=== PATIENT | female | born 1955 | race Caucasian/White ===

== ENCOUNTER → 2020-08-24 13:27 | Outpatient (BNVA) | payer MEDICARE, OTHER, SELFPAY | PROVIDERS: PCP Internal Medicine; Visit Provider Surgery | DX: Z76.89 Persons encountering health services in other specified circumstances (principal) ==

== ENCOUNTER → 2020-08-29 10:44 | Outpatient (BNVA) | payer MEDICARE, OTHER, SELFPAY | PROVIDERS: PCP Internal Medicine; Visit Provider Surgery | DX: Z76.89 Persons encountering health services in other specified circumstances (principal) ==

== ENCOUNTER → 2020-09-06 09:29 | Outpatient (BNVA) | payer MEDICARE, OTHER, SELFPAY | PROVIDERS: PCP Internal Medicine; Visit Provider Surgery | DX: D05.11 Intraductal carcinoma in situ of right breast (principal); E78.5 Hyperlipidemia, unspecified; I10 Essential (primary) hypertension; Z79.52 Long term (current) use of systemic steroids | CPT/HCPCS: 99212 ==

== ENCOUNTER → 2020-10-06 09:48 | Outpatient (BNVA) | payer MEDICARE, OTHER, SELFPAY | PROVIDERS: PCP Internal Medicine; Visit Provider Surgery | DX: Z48.3 Aftercare following surgery for neoplasm (principal); D05.11 Intraductal carcinoma in situ of right breast | CPT/HCPCS: 99212 ==

== ENCOUNTER → 2021-01-05 09:48 | Outpatient (BNVA) | payer MEDICARE, OTHER, SELFPAY | PROVIDERS: PCP Internal Medicine; Visit Provider Surgery | DX: D05.11 Intraductal carcinoma in situ of right breast (principal) | CPT/HCPCS: 99212 ==

== ENCOUNTER 2021-01-31 11:20 | Outpatient (REF) | payer MEDICARE, OTHER, SELFPAY ==
[2021-01-31 13:56] LABS: MANUAL DIFF FLAG NO
[2021-01-31 14:00] LABS: Basophils Percent Auto 0.2 % (0-2); Eosinophils Absolute Auto 0.1 X10*3/uL (0.0-0.4); Eosinophils Percent Auto 3.1 % (0-4); Hematocrit 38.8 % (37-47); Hemoglobin 12.8 g/dl (12.0-16.0); Imm Gran Abs Auto 0.02 X10*3/uL (0.00-0.03); Imm Gran Pct Auto 0.5 % (0.0-0.4); Lymphocytes Absolute Auto 1.1 X10*3/uL (1.2-4.9); Lymphocytes Percent Auto 26.1 % (20-40); Mean Corpuscular Hemoglobin 30.6 pg (27.0-33.0); Mean Corpuscular Volume 92.8 fL (80-98); Mean Platelet Volume 10.1 fL (9.4-12.3); Monocytes Absolute Auto 0.4 X10*3/uL (0.1-1.2); Monocytes Percent Auto 10.6 % (2-11); Neutrophils Absolute Auto 2.5 X10*3/uL (2.0-8.3); Neutrophils Percent Auto 59.5 % (45-73); Platelet Count 235 X10*3/uL (160-400); Red Blood Count 4.18 X10*6/uL (4.20-5.50); Red Cell Distribution Width 12.9 % (11.0-16.0); White Blood Count 4.1 X10*3/uL (4.8-10.8)
[2021-01-31 14:29] LABS: Alanine Aminotransferase 23 U/L (0-31); Albumin Level 4.4 g/dL (3.5-5.0); Alkaline Phosphatase 80 U/L (39-117); Anion Gap 13 (12-20); Aspartate Amino Transferase 15 U/L (5-31); Bilirubin Total 0.3 mg/dL (0.0-1.0); Blood Urea Nitrogen 19 mg/dL (9-16); Calcium 9.6 mg/dL (8.4-10.2); Carbon Dioxide 28 mmol/L (22-29); Chloride 105 mmol/L (96-108); Estimated Glomerular Filt Rate > 60; Glucose Random 95 mg/dL (60-115); Potassium 4.5 mmol/L (3.3-5.1); Sodium 141 mmol/L (135-145); Total Protein 6.9 g/dL (6.5-8.0)
[2021-01-31 14:52] LABS: Vitamin D 25-OH Total 36.4 ng/mL (>30)
== END 2021-01-31 11:21 | disposition home or self-care (01) ==
LOC: HO.10HDL 11:20
PROVIDERS: Visit Provider Internal Medicine
DX: I10 Essential (primary) hypertension (principal); E78.00 Pure hypercholesterolemia, unspecified; E55.9 Vitamin D deficiency, unspecified
CPT/HCPCS: 36415; 80053; 82306; 85025

== ENCOUNTER → 2021-04-03 10:07 | Outpatient (BNVA) | payer MEDICARE, OTHER, SELFPAY | PROVIDERS: PCP Internal Medicine; Referring Provider Internal Medicine; Visit Provider Surgery | DX: D05.11 Intraductal carcinoma in situ of right breast (principal) | CPT/HCPCS: 99212 ==

== ENCOUNTER 2021-05-21 07:23 | Outpatient (REF) | payer MEDICARE, OTHER, SELFPAY ==
[2021-05-21 08:19] LABS: MANUAL DIFF FLAG NO
[2021-05-21 08:22] LABS: Basophils Percent Auto 0.3 % (0-2); Eosinophils Absolute Auto 0.1 X10*3/uL (0.0-0.4); Eosinophils Percent Auto 2.9 % (0-4); Hematocrit 37.4 % (37-47); Hemoglobin 12.3 g/dl (12.0-16.0); Imm Gran Abs Auto 0.02 X10*3/uL (0.00-0.03); Imm Gran Pct Auto 0.5 % (0.0-0.4); Lymphocytes Absolute Auto 1.1 X10*3/uL (1.2-4.9); Lymphocytes Percent Auto 29.8 % (20-40); Mean Corpuscular HGB Conc 32.9 g/dl (31.0-35.0); Mean Corpuscular Hemoglobin 30.7 pg (27.0-33.0); Mean Corpuscular Volume 93.3 fL (80-98); Mean Platelet Volume 9.5 fL (9.4-12.3); Monocytes Absolute Auto 0.4 X10*3/uL (0.1-1.2); Monocytes Percent Auto 11.5 % (2-11); Neutrophils Absolute Auto 2.1 X10*3/uL (2.0-8.3); Platelet Count 208 X10*3/uL (160-400); Red Blood Count 4.01 X10*6/uL (4.20-5.50); Red Cell Distribution Width 13.2 % (11.0-16.0); White Blood Count 3.8 X10*3/uL (4.8-10.8)
[2021-05-21 08:56] LABS: Alanine Aminotransferase 18 U/L (0-31); Albumin Level 4.4 g/dL (3.5-5.0); Alkaline Phosphatase 83 U/L (39-117); Anion Gap 12 (12-20); Aspartate Amino Transferase 17 U/L (5-31); Bilirubin Total 0.3 mg/dL (0.0-1.0); Blood Urea Nitrogen 18 mg/dL (9-16); Calcium 10.1 mg/dL (8.4-10.2); Carbon Dioxide 29 mmol/L (22-29); Chloride 104 mmol/L (96-108); Cholesterol 179 mg/dL; Estimated Glomerular Filt Rate > 60; Glucose Fasting 119 mg/dL (60-99); HDL Cholesterol 48 mg/dL; LDL Cholesterol Calculated 114 mg/dl; Potassium 4.3 mmol/L (3.3-5.1); Sodium 141 mmol/L (135-145); Triglycerides 87 mg/dL
== END 2021-05-21 07:24 | disposition home or self-care (01) ==
LOC: HO.LAB 07:23
PROVIDERS: PCP Internal Medicine; Visit Provider Internal Medicine
DX: I10 Essential (primary) hypertension (principal); E78.00 Pure hypercholesterolemia, unspecified
CPT/HCPCS: 36415; 80053; 80061; 85025

== ENCOUNTER 2021-05-25 12:17 | Outpatient (REF) | payer MEDICARE, OTHER, SELFPAY ==
--- NOTE | ~2021-05-25 | MM_ITS ---
EXAMINATION: MM BREAST DIAGNOSTIC DIGITAL TOMOSYNTHESIS, BILATERAL CLINICAL INFORMATION: Status post lumpectomy in 2020 COMPARISON: Mammography: 08/21/2020 and studies dating back to 01/08/2010 TECHNIQUE: Digital breast tomosynthesis is performed in both the craniocaudal and mediolateral oblique views along with computer-aided detection (CAD). Synthesized 2D images are generated from the tomosynthesis. Additional spot magnification views of the right breast in craniocaudal and 90 degree mediolateral views performed. FINDINGS: There are scattered areas of fibroglandular density (ACR BI-RADS breast composition Category b). There is some postsurgical change seen about the right breast. No new abnormal dominant masses or suspicious grouping of microcalcifications identified. There is a clip with some scarring around it seen within the deep inferior aspect of the left breast. No new suspicious mass or grouping of calcifications identified. Results are provided to the patient at time of visit by the technologist. MM/MM tomosynthesis diagnostic BI IMPRESSION: No specific mammographic evidence to suggest malignancy. Status post right breast surgical changes. ASSESSMENT: BI-RADS 2: Benign RECOMMENDATION: Diagnostic mammography at time of next annual exam, due in 12 months. This patient's information was entered into a reminder system with a target due date for their next mammogram.
== END 2021-05-25 12:18 | disposition home or self-care (01) ==
LOC: HO.MAMMO 12:17
PROVIDERS: PCP Internal Medicine; Visit Provider Surgery
DX: D05.11 Intraductal carcinoma in situ of right breast (principal); Z98.890 Other specified postprocedural states
CPT/HCPCS: 77062; 77066

== ENCOUNTER 2021-08-24 07:37 | Outpatient (REF) | payer MEDICARE, OTHER, SELFPAY ==
[2021-08-24 10:27] LABS: Estimated Average Glucose 126 mg/dL; Hemoglobin A1C 131.5144 umol/L
[2021-08-24 10:31] LABS: Alanine Aminotransferase 18 U/L (0-31); Albumin Level 4.4 g/dL (3.5-5.0); Alkaline Phosphatase 80 U/L (39-117); Anion Gap 14 (12-20); Aspartate Amino Transferase 15 U/L (5-31); Bilirubin Total 0.4 mg/dL (0.0-1.0); Blood Urea Nitrogen 14 mg/dL (9-16); Carbon Dioxide 27 mmol/L (22-29); Chloride 103 mmol/L (96-108); Estimated Glomerular Filt Rate > 60; Glucose Fasting 128 mg/dL (60-99); Potassium 4.1 mmol/L (3.3-5.1); Sodium 140 mmol/L (135-145); Total Protein 6.9 g/dL (6.5-8.0)
== END 2021-08-24 07:38 | disposition home or self-care (01) ==
LOC: HO.10HDL 07:37
PROVIDERS: Visit Provider Internal Medicine
DX: I10 Essential (primary) hypertension (principal); R73.03 Prediabetes
CPT/HCPCS: 36415; 80053; 83036

== ENCOUNTER → 2021-10-02 08:47 | Outpatient (BNVA) | payer MEDICARE, OTHER, SELFPAY | PROVIDERS: PCP Internal Medicine; Referring Provider Internal Medicine; Visit Provider Surgery | DX: D05.11 Intraductal carcinoma in situ of right breast (principal) | CPT/HCPCS: 99212 ==

== ENCOUNTER 2022-05-28 10:54 | Outpatient (REF) | payer MEDICARE, OTHER, SELFPAY ==
--- NOTE | ~2022-05-28 | MM_ITS ---
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 Due for yearly. COMPARISON: Mammography: 05/25/2021, 08/21/2020, 08/04/2020, 07/26/2020, 07/21/2020, 07/16/2019 TECHNIQUE: Digital breast tomosynthesis is performed in both the craniocaudal and mediolateral oblique views along with computer-aided detection (CAD). Synthesized 2D images are generated from the tomosynthesis. Additional magnification right CC and magnification right ML views are obtained. FINDINGS: There are scattered areas of fibroglandular density (ACR BI-RADS breast composition Category b). Minor right postsurgical changes are stable. There is no interval mass or architectural abnormality or abnormal calcifications in either breast. Biopsy clip marker again seen posterior central 6:00 left breast. The axilla are unremarkable. No significant changes. Results are provided to the patient at time of visit by the technologist. MM/MM tomosynthesis diagnostic BI IMPRESSION: -No mammographic evidence of malignancy. -Minor post therapy changes right breast. ASSESSMENT: BI-RADS 2: Benign RECOMMENDATION: Annual bilateral mammography. This patient's information was entered into a reminder system with a target due date for their next mammogram.
== END 2022-05-28 10:55 | disposition home or self-care (01) ==
LOC: HO.MAMMO 10:54
PROVIDERS: Visit Provider Surgery
DX: D05.11 Intraductal carcinoma in situ of right breast (principal)
CPT/HCPCS: 77062; 77066; 99212

== ENCOUNTER 2022-06-04 07:31 | Outpatient (REF) | payer MEDICARE, OTHER, SELFPAY ==
[2022-06-04 10:44] LABS: MANUAL DIFF FLAG NO
[2022-06-04 10:52] LABS: Eosinophils Absolute Auto 0.1 X10*3/uL (0.0-0.4); Hematocrit 33.7 % (37.0-47.0); Hemoglobin 11.1 g/dl (12.0-16.0); Imm Gran Abs Auto 0.03 X10*3/uL (0.00-0.03); Imm Gran Pct Auto 0.9 % (0.0-0.4); Lymphocytes Percent Auto 30.8 % (20-40); Mean Corpuscular HGB Conc 32.9 g/dl (31.0-35.0); Mean Corpuscular Hemoglobin 30.4 pg (27.0-33.0); Mean Corpuscular Volume 92.3 fL (80.0-98.0); Mean Platelet Volume 10.2 fL (9.4-12.3); Monocytes Absolute Auto 0.3 X10*3/uL (0.1-1.2); Neutrophils Absolute Auto 1.8 x10*3/uL (2.0-8.3); Neutrophils Percent Auto 55.3 % (45-73); Platelet Count 187 X10*3/uL (160-400); Red Blood Count 3.65 X10*6/uL (4.20-5.50); Red Cell Distribution Width 14.3 % (11.0-16.0); White Blood Count 3.2 X10*3/uL (4.8-10.8)
[2022-06-04 11:02] LABS: Alanine Aminotransferase 21 U/L (0-31); Albumin Level 4.4 g/dL (3.5-5.0); Alkaline Phosphatase 78 U/L (39-117); Anion Gap 12 (12-20); Aspartate Amino Transferase 15 U/L (5-31); Bilirubin Total 0.3 mg/dL (0.0-1.0); Blood Urea Nitrogen 20 mg/dL (9-16); Calcium 9.9 mg/dL (8.4-10.2); Carbon Dioxide 27 mmol/L (22-29); Chloride 104 mmol/L (96-108); Cholesterol 185 mg/dL; Estimated Glomerular Filt Rate > 60; Glucose Fasting 119 mg/dL (60-99); HDL Cholesterol 49 mg/dL; LDL Cholesterol Calculated 116 mg/dl; Potassium 4.1 mmol/L (3.3-5.1); Sodium 139 mmol/L (135-145); Total Protein 6.9 g/dL (6.5-8.0); Triglycerides 101 mg/dL
[2022-06-04 11:22] LABS: Vitamin D 25-OH Total 44.2 ng/mL (>30)
== END 2022-06-04 07:32 | disposition home or self-care (01) ==
LOC: HO.10HDL 07:31
PROVIDERS: Visit Provider Internal Medicine
DX: I10 Essential (primary) hypertension (principal); E78.00 Pure hypercholesterolemia, unspecified; E55.9 Vitamin D deficiency, unspecified
CPT/HCPCS: 36415; 80053; 80061; 82306; 85025

== ENCOUNTER 2022-07-26 07:32 | Outpatient (REF) | payer MEDICARE, OTHER, SELFPAY ==
[2022-07-26 11:44] LABS: Estimated Average Glucose 128 mg/dL; Hemoglobin A1c % 6.1 %
[2022-07-26 11:47] LABS: Anion Gap 15 (12-20); Blood Urea Nitrogen 18 mg/dL (9-16); Calcium 9.8 mg/dL (8.4-10.2); Carbon Dioxide 26 mmol/L (22-29); Chloride 104 mmol/L (96-108); Estimated Glomerular Filt Rate > 60; Glucose Fasting 109 mg/dL (60-99); Iron 101 mcg/dL (30-160); Percent Iron Saturation 26 % (15-50); Sodium 141 mmol/L (135-145); Total Iron Binding Capacity 391 mcg/dL (228-428); Unsaturated Iron Binding 290 ug/dL
== END 2022-07-26 07:33 | disposition home or self-care (01) ==
LOC: HO.10HDL 07:32
PROVIDERS: Visit Provider Internal Medicine
DX: R73.03 Prediabetes (principal); I10 Essential (primary) hypertension; R60.0 Localized edema; D64.9 Anemia, unspecified
CPT/HCPCS: 36415; 80048; 83036; 83540

== ENCOUNTER → 2022-11-28 08:51 | Outpatient (BNVA) | payer MEDICARE, OTHER, SELFPAY | PROVIDERS: PCP Internal Medicine; Visit Provider Surgery | DX: D05.11 Intraductal carcinoma in situ of right breast (principal); Z79.811 Long term (current) use of aromatase inhibitors; Z92.3 Personal history of irradiation | CPT/HCPCS: 99212 ==

== ENCOUNTER 2023-03-24 07:48 | Outpatient (REF) | payer MEDICARE, OTHER, SELFPAY ==
[2023-03-24 11:13] LABS: Basophils Percent Auto 0.4 % (0-2); Eosinophils Absolute Auto 0.1 X10*3/uL (0.0-0.4); Eosinophils Percent Auto 3.1 % (0-4); Hematocrit 32.1 % (37.0-47.0); Hemoglobin 10.2 g/dl (12.0-16.0); Imm Gran Abs Auto 0.04 X10*3/uL (0.00-0.03); Imm Gran Pct Auto 1.5 % (0.0-0.4); Lymphocytes Absolute Auto 0.8 X10*3/uL (1.2-4.9); Lymphocytes Percent Auto 28.7 % (20-40); MANUAL DIFF FLAG SCAN; Mean Corpuscular HGB Conc 31.8 g/dl (31.0-35.0); Mean Corpuscular Hemoglobin 28.9 pg (27.0-33.0); Mean Corpuscular Volume 90.9 fL (80.0-98.0); Mean Platelet Volume 10.8 fL (9.4-12.3); Monocytes Absolute Auto 0.3 X10*3/uL (0.1-1.2); Neutrophils Absolute Auto 1.5 x10*3/uL (2.0-8.3); Neutrophils Percent Auto 56.3 % (45-73); PLT CLUMP 1; Red Blood Count 3.53 X10*6/uL (4.20-5.50); Red Cell Distribution Width 15.7 % (11.0-16.0); SCAN SMEAR FLAG 1
[2023-03-24 11:14] LABS: White Blood Count 2.6 X10*3/uL (4.8-10.8)
[2023-03-24 11:34] LABS: Platelet Count 151 X10*3/uL (160-400); SLIDE REVIEW VERIFIED
[2023-03-24 12:43] LABS: Anion Gap 13 (12-20); Blood Urea Nitrogen 17 mg/dL (9-16); Calcium 9.9 mg/dL (8.4-10.2); Carbon Dioxide 27 mmol/L (22-29); Chloride 105 mmol/L (96-108); Estimated Glomerular Filt Rate > 60; Glucose Random 122 mg/dL (60-115); Sodium 141 mmol/L (135-145)
[2023-03-24 12:45] LABS: Estimated Average Glucose 140 mg/dL; Hemoglobin A1c % 6.5 %
== END 2023-03-24 07:49 | disposition home or self-care (01) ==
LOC: HO.10HDL 07:48
PROVIDERS: Visit Provider Internal Medicine
DX: I10 Essential (primary) hypertension (principal); R73.03 Prediabetes
CPT/HCPCS: 36415; 80048; 83036; 85025

== ENCOUNTER 2023-06-12 08:13 | Outpatient (REF) | payer MEDICARE, OTHER, SELFPAY ==
--- NOTE | ~2023-06-12 | MM_ITS ---
EXAMINATION: MM DIAGNOSTIC DIGITAL BREAST TOMOSYNTHESIS, BILATERAL CLINICAL INFORMATION: History of treated right breast DCIS diagnosed in 2020. COMPARISON: Mammography: This study is compared with prior mammograms dating back to 2018. TECHNIQUE: Digital breast tomosynthesis is performed in both the craniocaudal and mediolateral oblique views along with computer-aided detection (CAD). Synthesized 2D images are generated from the tomosynthesis. CC and lateral magnification imaging of the surgical bed of the right breast. FINDINGS: There are scattered areas of fibroglandular density (ACR BI-RADS breast composition Category b). There are no significant masses, abnormal calcifications, or other abnormalities. There are postsurgical changes in the posterior nipple line. There are a few, bilateral benign calcifications. There is a tissue marker in the left breast from prior benign percutaneous biopsy. MM/MM tomosynthesis diagnostic BI IMPRESSION: No mammographic evidence of malignancy. Postsurgical changes right breast. ASSESSMENT: BI-RADS BI-RADS 2 - Benign Findings RECOMMENDATION: 1 year F/U This patient's information was entered into a reminder system with a target due date for their next mammogram.
== END 2023-06-12 08:14 | disposition home or self-care (01) ==
LOC: HO.MAMMO 08:13
PROVIDERS: PCP Internal Medicine; Visit Provider Surgery
DX: Z85.3 Personal history of malignant neoplasm of breast (principal)
CPT/HCPCS: 77062; 77066

== ENCOUNTER → 2023-06-12 08:30 | Outpatient (BNV) | payer MEDICARE, OTHER, SELFPAY | PROVIDERS: PCP Internal Medicine; Visit Provider Radiology Diagnostic Radiology | DX: D05.11 Intraductal carcinoma in situ of right breast (principal) | CPT/HCPCS: 77066 ==

== ENCOUNTER 2023-06-19 08:49 | Outpatient (AMB) | payer MEDICARE, OTHER, SELFPAY ==
--- NOTE | 2023-06-19 08:51 | A.OFFVIS_ITS ---
Intake Vital Signs 06/19/23 09:05 Height 59 ft Weight 266 lb 12.149 oz BMI 0.4 BP 130/82 Blood Pressure Location Lt brachial Position Sitting Intake Visit Reasons: 6 month breast exam Intake Note: Patient is seen in office for 6 month follow up visit, breast exam. Patient c/o: denies any concerns at the time of visit Paste Up Copy Camera Operator Required: No Casino Floor Runner: Casino Floor Runner Present Accompanied by: Self / Same As Patient Allergies chlorhexidine Allergy (Intermediate, Verified 06/19/23 08:52) Rash HPI HPI Comments History of Present Illness Details Angelica Slade is a 67-year-old female patient who returns to the office for follow-up breast examination.? 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 Subsequent re-evaluation of pathology at [facility] revealed an area of micro invasion.? Postoperatively she developed redness in the skin related to the skin prep (chlorhexidine) which gradually resolved.? She subsequently underwent [place] therapy [place]10[place]23/2020[place] [facility] [place] and tolerated this well with no side effects.? She is being followed from medical oncology by Dr. Burk/Carleen and was started on anastrozole (started 12/2020). She tolerates this with mild side effects (hot flashes).? She feels well and denies any ongoing breast symptoms on either side.? She denies any new palpable lumps, skin changes, nipple discharge, or enlarged lymph nodes. Diagnostic mammography performed on 06/12/2023 revealed no mammographic specific evidence of malignancy with prior treatment of the right breast (BI-RADS 2: Benign). Yearly mammogram is recommended in May 2024. She should follow up in 6 months. [facility] Medical History Hyperlipidemia Hypertension Surgical History History of lumpectomy of right breast (~08/21/20) S/P lumpectomy, right breast Family History Father History of prostate cancer Social History Alcohol intake: current Alcohol intake frequency: holidays/special occasions only Review of Systems Const All systems reviewed & are unremarkable except as noted in HPI and below Denies nipple discharge Skin/Breast Denies breast skin changes, Denies breast pain, Denies breast mass, Denies change in breast shape and Denies nipple discharge Physical Exam Const General: cooperative, healthy appearing, comfortable, no acute distress and well developed Chest Other: Left breast: No skin change, no nipple retraction, no nipple discharge, no p alpable mass, no enlarged lymph nodes. 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 She is now on anastrozole and is also tolerating this well. Th ere is no evidence of recurrence disease. Her most recent mammogram dated 06/12/2022 revealed no suspicious findings (BI-RADS 2) and yearly mammography recommended. Examination today reveals no evidence of recurrence disease and well-healed incision in the right breast. I recommended follow-up evaluation in 6 months sooner p.r.n.. 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
[2023-06-19 09:05] VITALS: BP 130/82
== END 2023-06-19 09:06 | disposition home or self-care (01) ==
PROVIDERS: PCP Internal Medicine; Visit Provider Surgery
DX: D05.11 Intraductal carcinoma in situ of right breast (principal)
CPT/HCPCS: 99213

== ENCOUNTER → 2023-06-19 08:49 | Outpatient (BNVA) | payer MEDICARE, OTHER, SELFPAY | PROVIDERS: PCP Internal Medicine; Visit Provider Surgery | DX: D05.11 Intraductal carcinoma in situ of right breast (principal); Z92.3 Personal history of irradiation; Z79.811 Long term (current) use of aromatase inhibitors | CPT/HCPCS: 99212 ==

== ENCOUNTER 2023-06-26 07:31 | Outpatient (REF) | payer MEDICARE, OTHER, SELFPAY ==
[2023-06-26 11:20] LABS: MANUAL DIFF FLAG NO
[2023-06-26 11:49] LABS: Basophils Percent Auto 0.4 % (0-2); Eosinophils Absolute Auto 0.1 X10*3/uL (0.0-0.4); Eosinophils Percent Auto 4.5 % (0-4); Hemoglobin 10.1 g/dl (12.0-16.0); Imm Gran Abs Auto 0.04 X10*3/uL (0.00-0.03); Imm Gran Pct Auto 1.5 % (0.0-0.4); Lymphocytes Absolute Auto 0.8 X10*3/uL (1.2-4.9); Lymphocytes Percent Auto 30.5 % (20-40); Mean Corpuscular HGB Conc 31.6 g/dl (31.0-35.0); Mean Corpuscular Hemoglobin 29.4 pg (27.0-33.0); Mean Platelet Volume 10.8 fL (9.4-12.3); Monocytes Absolute Auto 0.3 X10*3/uL (0.1-1.2); Monocytes Percent Auto 11.7 % (2-11); Neutrophils Absolute Auto 1.4 x10*3/uL (2.0-8.3); Neutrophils Percent Auto 51.4 % (45-73); Platelet Count 166 X10*3/uL (160-400); Red Blood Count 3.44 X10*6/uL (4.20-5.50); Red Cell Distribution Width 16.2 % (11.0-16.0); White Blood Count 2.7 X10*3/uL (4.8-10.8)
[2023-06-26 12:02] LABS: Alanine Aminotransferase 23 U/L (0-31); Albumin Level 4.2 g/dL (3.5-5.0); Alkaline Phosphatase 76 U/L (39-117); Anion Gap 15 (12-20); Aspartate Amino Transferase 15 U/L (5-31); Bilirubin Total 0.4 mg/dL (0.0-1.0); Blood Urea Nitrogen 18 mg/dL (9-16); Calcium 10.4 mg/dL (8.4-10.2); Carbon Dioxide 25 mmol/L (22-29); Chloride 106 mmol/L (96-108); Cholesterol 164 mg/dL; Estimated Glomerular Filt Rate > 60; Glucose Fasting 126 mg/dL (60-99); HDL Cholesterol 40 mg/dL; LDL Cholesterol Calculated 105 mg/dl; Potassium 3.8 mmol/L (3.3-5.1); Sodium 142 mmol/L (135-145); Triglycerides 99 mg/dL
[2023-06-26 12:04] LABS: Estimated Average Glucose 137 mg/dL; Hemoglobin A1c % 6.4 %
[2023-06-26 12:53] LABS: Creatinine Urine 211.54 mg/dL
== END 2023-06-26 07:32 | disposition home or self-care (01) ==
LOC: HO.10HDL 07:31
PROVIDERS: Visit Provider Internal Medicine
DX: I12.9 Hypertensive chronic kidney disease with stage 1 through stage 4 chronic kidney disease, or unspecified chronic kidney disease (principal); E55.9 Vitamin D deficiency, unspecified; E78.00 Pure hypercholesterolemia, unspecified; R73.03 Prediabetes
CPT/HCPCS: 36415; 80053; 80061; 82043; 83036; 85025

== ENCOUNTER 2023-12-10 06:16 | Day surgery (SDC) | payer MEDICARE, OTHER, SELFPAY ==
--- NOTE | 2023-12-08 14:08 | HO.ANESPROP2 ---
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 (Acute) Ductal carcinoma in situ of right breast (Acute) Contact dermatitis (Acute) Past Medical History Medical History Leukopenia Anemia Breast cancer, right Hyperlipidemia Hypertension Family History Family History Father History of prostate cancer Surgical History Surgical History H/O colonoscopy History of lumpectomy of right breast (~08/21/20) Social History Social History (Updated 12/08/23 @ 14:29 by Maddie Cifuentes RN) Alcohol intake: current Alcohol intake frequency: holidays/special occasions only Patient Tobacco Use Status: Never used Tobacco Use of substances other than those prescribed or required for medical reasons: No Are you DNR?: No Advance Directives: No Advance Directives Information Provided: Yes Patient : No Meds Allergies Allergy/AdvReac Type Severity Reaction Status Date / Time chlorhexidine Allergy Intermediate Rash Verified 06/19/23 08:52 Home Medications Medication Instructions Recorded Confirmed Last Taken Type amlodipine 5 mg tablet 5 mg PO DAILY 08/24/20 12/08/23 Unknown History losartan 100 mg tablet 100 mg PO DAILY 08/24/20 12/08/23 Unknown History simvastatin 20 mg tablet 20 mg PO DAILY 08/24/20 12/08/23 Unknown History atenolol 25 mg tablet 25 mg PO DAILY 10/06/20 12/10/23 12/10/23 05:15 History cholecalciferol (vitamin D3) 25 25 mcg PO DAILY 10/06/20 11/28/22 Unknown History mcg (1,000 unit) capsule anastrozole 1 mg tablet 1 mg PO DAILY 04/03/21 12/08/23 Unknown History hydrochlorothiazide 12.5 mg capsule 12.5 mg PO DAILY 04/03/21 12/08/23 Unknown History Exam Pertinent Lab Results Pertinent Lab Results: Laboratory Tests 06/26/23 07:40 WBC 2.7 L Hgb 10.1 L Hct 32.0 L Plt Count 166 Sodium 142 Potassium 3.8 Chloride 106 Carbon Dioxide 25 BUN 18 H Creatinine 0.84 Assessment and Plan Assessment Anesthesia Assessment: Chart Reviewed Documented by User: Zac Bermudez MD 12/10/23 07:51 PMFSH Past Medical History Medical History Leukopenia Anemia Breast cancer, right Hyperlipidemia Hypertension Family History Family History Father History of prostate cancer Family history of problems with anesthesia: No Surgical History Surgical History H/O colonoscopy History of lumpectomy of right breast (~08/21/20) History of Problems with Anesthesia: No Social History Social History (Updated 12/08/23 @ 14:29 by Maddie Cifuentes RN) Alcohol intake: current Alcohol intake frequency: holidays/special occasions only Patient Tobacco Use Status: Never used Tobacco Use of substances other than those prescribed or required for medical reasons: No Are you DNR?: No Advance Directives: No Advance Directives Information Provided: Yes Patient : No Meds Allergies Allergy/AdvReac Type Severity Reaction Status Date / Time chlorhexidine Allergy Intermediate Rash Verified 06/19/23 08:52 Home Medications Medication Instructions Recorded Confirmed Last Taken Type amlodipine 5 mg tablet 5 mg PO DAILY 08/24/20 12/08/23 Unknown History losartan 100 mg tablet 100 mg PO DAILY 08/24/20 12/08/23 Unknown History simvastatin 20 mg tablet 20 mg PO DAILY 08/24/20 12/08/23 Unknown History atenolol 25 mg tablet 25 mg PO DAILY 10/06/20 12/10/23 12/10/23 05:15 History cholecalciferol (vitamin D3) 25 25 mcg PO DAILY 10/06/20 11/28/22 Unknown History mcg (1,000 unit) capsule anastrozole 1 mg tablet 1 mg PO DAILY 04/03/21 12/08/23 Unknown History hydrochlorothiazide 12.5 mg capsule 12.5 mg PO DAILY 04/03/21 12/08/23 Unknown History Exam Airway Mallampati Class: II TM Dist: <=3cm Neck ROM: Full Partial: Lower Heart: ok Lungs: ok Assessment and Plan Assessment Anesthesia Assessment: Anesthesia Plan Discussed Final Anesthetic Review Family History of Problems with Anesthesia: No History of Problems with Anesthesia: No NPO: Yes ASA Class: III Final Preanesthetic Review: No Changes in Pt Med Stat, Meds/Allgs Chart Reviewed, Consent Obtained/Reviewed and Anes Risks/Benef Reviewed Patient Risk: Intermediate Procedure Risk: Low Anesthetic Plan Anesthetic Plan: MAC: and Agree w/ Assess. and Plan Disposition: Standard PACU
[2023-12-08 14:27] VITALS: BMI 39.9
[2023-12-10 06:57] VITALS: BMI 39.5
[2023-12-10 07:10] VITALS: BMI 39.5
[2023-12-10 07:14] VITALS: BP 158/72; PULSE 70; RESP 18; O2SAT 96
[2023-12-10] MEDS: Lactated Ringers 1,000 ML 100 ML IVCONT (07:28)
[2023-12-10 08:35] VITALS: BP 118/60; PULSE 66; RESP 20; TEMP 36; O2SAT 96
--- NOTE | 2023-12-10 08:38 | PM.OP ---
Brief Operative Note Date of Service: 12/10/23 Pre-op diagnosis: Screening Post-op diagnosis: other (Diverticulosis) Procedure: Colonoscopy to cecum Surgeon: Marc Baker MD Anesthesia: MAC Was an Maxillofacial Pathology used for this Procedure?: No Estimated blood loss (mL): 0 Pathology: none sent Condition: stable Disposition: PACU
[2023-12-10 08:50] VITALS: BP 155/85; PULSE 61; RESP 20; TEMP 36.1; O2SAT 96
--- NOTE | 2023-12-10 09:02 | OP_ITS ---
DATE OF SERVICE: 12/10/2023 SURGEON: Marc Baker MD INDICATIONS: The patient presents for evaluation of colorectal cancer screening. Full consent has been obtained from her for this, including risks of bleeding and perforation. PREOPERATIVE DIAGNOSIS: Colorectal cancer screening. POSTOPERATIVE DIAGNOSIS: Colorectal cancer screening, diverticulosis, and internal hemorrhoids. PROCEDURE PERFORMED: Colonoscopy to cecum. ESTIMATED BLOOD LOSS: COMPLICATIONS: ANESTHESIA: Medication used, monitored anesthesia care. ASSISTANTS: SPECIMENS: DESCRIPTION OF PROCEDURE: The patient was placed in the left lateral decubitus position. The digital rectal exam revealed no abnormalities. The Olympus video pediatric colonoscope was entered into the rectum and advanced to the cecum with the assistance of abdominal pressure. Once in the cecum, I did identify normal-appearing cecal pouch with appendiceal orifice and a normal-appearing ileocecal valve. The entire cecum was well visualized and appeared normal. The scope was slowly withdrawn assessing all mucosal surfaces carefully. Preparation was excellent. I did not visualize any sign of polyps, colitis, nor angiodysplasia. There was a moderate amount of sigmoid diverticulosis. In the rectum, scope was retroflexed visualizing internal hemorrhoids, but no other pathology. The rectal mucosa appeared normal. Scope was straightened and withdrawn from the patient. She tolerated the procedure well and was returned to the recovery area in stable condition. IMPRESSION: 1. Diverticulosis. 2. Internal hemorrhoids. PLAN: Given today's negative colonoscopy, a negative colonoscopy in 2007, no family history of colon cancer, and her age, I do not think she will need any further screening colonoscopies. She will see me on a p.r.n. basis. This has been discussed with her . MD WILMA Ray/LOUL / [phone] MTDD
== END 2023-12-10 09:20 | disposition home or self-care (01) ==
PROVIDERS: PCP Internal Medicine; Visit Provider Internal Medicine
PROC: 0DJD8ZZ Inspection of Lower Intestinal Tract, Via Natural or Artificial Opening Endoscopic (ICD-10-PCS; CPT 45378; principal; 2023-12-10 07:30)
DX: Z12.11 Encounter for screening for malignant neoplasm of colon (principal); K57.30 Diverticulosis of large intestine without perforation or abscess without bleeding; K64.8 Other hemorrhoids; I10 Essential (primary) hypertension
CPT/HCPCS: G0121; J2704

== ENCOUNTER 2024-01-16 09:00 | Outpatient (AMB) | payer MEDICARE, OTHER, SELFPAY ==
--- NOTE | 2024-01-16 09:04 | MHC.OFFVIS ---
Intake Vital Signs 01/16/24 09:11 Height 5 ft 9 in Weight 263 lb 8 oz BMI 38.9 BP 141/84 H Blood Pressure Location Lt brachial Position Sitting Pulse 89 Intake Visit Reasons: 6 month breast exam Intake Note: Patient is seen in office for 6 month follow up visit, breast exam. Patient c/o: denies any concerns regarding the breast mm:06/12/23 Numerical Analysis Group Manager Required: No Accompanied by: Self / Same As Patient Allergies chlorhexidine Allergy (Intermediate, Verified 01/16/24 09:09) Rash Medication List - Last Reconciled 01/16/24 by Viraj Olvera MD amlodipine 5 mg PO DAILY anastrozole 1 mg PO DAILY atenolol 25 mg PO DAILY cholecalciferol (vitamin D3) 25 mcg PO DAILY hydrochlorothiazide 12.5 mg PO DAILY losartan 100 mg PO DAILY simvastatin 20 mg PO DAILY HPI HPI Comments History of Present Illness Details Angelica Slade is a 68-year-old female patient who returns to the office for follow-up breast examination.? 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 Subsequent re-evaluation of pathology at [facility] revealed an area of micro invasion.? Postoperatively she developed redness in the skin related to the skin prep (chlorhexidine) which gradually resolved.? She subsequently underwent radiation therapy (10/23/2020[place]11/21/[place] [facility] [place]) and tolerated this well with no side effects.? She is being followed from medical oncology by Dr. Burk/Carleen and was started on anastrozole (started 12/2020). She tolerates this with mild side effects (hot flashes).? She feels well and denies any ongoing breast symptoms on either side.? She denies any new palpable lumps, skin changes, nipple discharge, or enlarged lymph nodes. Diagnostic mammography performed on 06/12/2023 revealed no mammographic specific evidence of malignancy with prior treatment of the right breast (BI-RADS 2: Benign). Yearly mammogram is recommended in May 2024. [facility] Medical History Leukopenia Anemia Breast cancer, right Hyperlipidemia Hypertension Surgical History H/O colonoscopy History of lumpectomy of right breast (~08/21/20) Family History Father History of prostate cancer Social History Alcohol intake: current Alcohol intake frequency: holidays/special occasions only Patient Tobacco Use Status: Never used Tobacco Review of Systems Const All systems reviewed & are unremarkable except as noted in HPI and below Denies nipple discharge Skin/Breast Denies breast skin changes, Denies breast pain, Denies breast mass, Denies change in breast shape and Denies nipple discharge Physical Exam Vital Signs: Last Vital Signs Pulse 89 01/16/24 09:11 BP 141/84 H 01/16/24 09:11 BMI result Body Mass Index 38.9 Const General: cooperative, healthy appearing, comfortable, no acute distress and well developed Chest Other: Left breast: No skin change, no nipple retraction, no nipple discharge, no palpable mass, no enlarged lymph nodes. 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 She is now on anastrozole and is also tolerating this well. There is no evidence of recurrence disease. Her most recent mammogram dated 06/12/2022 revealed no suspicious findings (BI-RADS 2) and yearly mammography recommended. Examination today reveals no evidence of recurrence disease and well-healed incision in the right breast. I recommended follow-up evaluation in 6 months sooner p.r.n.. 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
[2024-01-16 09:11] VITALS: BP 141/84; PULSE 89; BMI 38.9
== END 2024-01-16 09:35 | disposition home or self-care (01) ==
PROVIDERS: PCP Internal Medicine; Visit Provider Surgery
DX: D05.11 Intraductal carcinoma in situ of right breast (principal)
CPT/HCPCS: 99213

== ENCOUNTER → 2024-01-16 09:00 | Outpatient (BNVA) | payer MEDICARE, OTHER, SELFPAY | PROVIDERS: PCP Internal Medicine; Visit Provider Surgery | DX: D05.11 Intraductal carcinoma in situ of right breast (principal) | CPT/HCPCS: 99212 ==

== ENCOUNTER 2024-02-09 07:36 | Outpatient (REF) | payer MEDICARE, OTHER, SELFPAY ==
[2024-02-09 10:41] LABS: Basophils Percent Auto 0.4 % (0-2); Eosinophils Absolute Auto 0.1 X10*3/uL (0.0-0.4); Eosinophils Percent Auto 2.2 % (0-4); Hemoglobin 9.3 g/dl (12.0-16.0); Imm Gran Abs Auto 0.05 X10*3/uL (0.00-0.03); Imm Gran Pct Auto 2.2 % (0.0-0.4); Lymphocytes Absolute Auto 0.6 X10*3/uL (1.2-4.9); Lymphocytes Percent Auto 27.5 % (20-40); MANUAL DIFF FLAG SCAN; Mean Corpuscular HGB Conc 32.1 g/dl (31.0-35.0); Mean Corpuscular Hemoglobin 29.5 pg (27.0-33.0); Mean Corpuscular Volume 92.1 fL (80.0-98.0); Mean Platelet Volume 11.2 fL (9.4-12.3); Monocytes Absolute Auto 0.3 X10*3/uL (0.1-1.2); Monocytes Percent Auto 14.4 % (2-11); Neutrophils Absolute Auto 1.2 x10*3/uL (2.0-8.3); Neutrophils Percent Auto 53.3 % (45-73); Platelet Count 123 X10*3/uL (160-400); Red Blood Count 3.15 X10*6/uL (4.20-5.50); Red Cell Distribution Width 16.9 % (11.0-16.0); SCAN SMEAR FLAG 1
[2024-02-09 10:45] LABS: White Blood Count 2.3 X10*3/uL (4.8-10.8)
[2024-02-09 11:02] LABS: Estimated Average Glucose 143 mg/dL; Hemoglobin A1c % 6.6 % (<6.0)
[2024-02-09 11:15] LABS: SLIDE REVIEW VERIFIED
[2024-02-09 11:29] LABS: Alanine Aminotransferase 20 U/L (0-31); Albumin Level 4.1 g/dL (3.5-5.0); Alkaline Phosphatase 76 U/L (39-117); Anion Gap 13 (12-20); Aspartate Amino Transferase 15 U/L (5-31); Bilirubin Total 0.4 mg/dL (0.0-1.0); Blood Urea Nitrogen 17 mg/dL (9-16); Calcium 9.6 mg/dL (8.4-10.2); Carbon Dioxide 26 mmol/L (22-29); Chloride 106 mmol/L (96-108); Estimated Glomerular Filt Rate > 60; Glucose Random 127 mg/dL (60-115); Potassium 3.9 mmol/L (3.3-5.1); Sodium 141 mmol/L (135-145); Total Protein 6.5 g/dL (6.5-8.0)
[2024-02-09 11:30] LABS: Creatinine Urine 210.32 mg/dL; Microalbum/Creatinine Ratio Ur 6.6 ug/mg cr (<30)
== END 2024-02-09 07:37 | disposition home or self-care (01) ==
LOC: HO.10HDL 07:36
PROVIDERS: Visit Provider Internal Medicine
DX: I10 Essential (primary) hypertension (principal); E11.9 Type 2 diabetes mellitus without complications; D64.9 Anemia, unspecified
CPT/HCPCS: 36415; 80053; 82043; 82570; 83036; 85025

== ENCOUNTER 2024-06-14 07:59 | Outpatient (REF) | payer MEDICARE, OTHER, SELFPAY ==
--- NOTE | ~2024-06-14 | MM_ITS ---
EXAMINATION: MM SCREENING DIGITAL BREAST TOMOSYNTHESIS, BILATERAL CLINICAL INFORMATION: Screening. Asymptomatic. COMPARISON: Mammography: This study is compared with prior exams dating back to 2019. TECHNIQUE: Digital breast tomosynthesis is performed in both the craniocaudal and mediolateral oblique views along with computer-aided detection (CAD). Synthesized 2D images are generated from the tomosynthesis. FINDINGS: There are scattered areas of fibroglandular density (ACR BI-RADS breast composition Category b). There are no significant masses, abnormal calcifications, or other abnormalities. There is tissue marker present in the left breast from prior benign percutaneous biopsy. MM/MM tomosynthesis screening BI IMPRESSION: No mammographic evidence of malignancy. ASSESSMENT: BI-RADS BI-RADS 2 - Benign Findings RECOMMENDATION: Routine annual mammography screening. 1 year F/U This examination should not preclude the clinical evaluation of a suspicious palpable abnormality. This patient's information was entered into a reminder system with a target due date for their next mammogram.
== END 2024-06-14 08:00 | disposition home or self-care (01) ==
LOC: HO.MAMMO 07:59
PROVIDERS: PCP Internal Medicine; Visit Provider Surgery
DX: Z12.31 Encounter for screening mammogram for malignant neoplasm of breast (principal)
CPT/HCPCS: 77063; 77067

== ENCOUNTER → 2024-06-14 08:15 | Outpatient (BNV) | payer MEDICARE, OTHER, SELFPAY | PROVIDERS: PCP Internal Medicine; Visit Provider Radiology Diagnostic Radiology | DX: Z12.31 Encounter for screening mammogram for malignant neoplasm of breast (principal) | CPT/HCPCS: 77063; 77067 ==

== ENCOUNTER 2024-07-23 08:43 | Outpatient (AMB) | payer MEDICARE, OTHER, SELFPAY ==
--- NOTE | 2024-07-23 09:05 | MHC.OFFVIS ---
Vital Signs 07/23/24 09:12 Height 5 ft 9 in Weight 260 lb BMI 38.4 BP 138/65 Blood Pressure Location Lt brachial Position Sitting Pulse 88 Intake Visit Reasons: 6 month breast exam Intake Note: Patient is seen in office for 6 month follow up visit, breast exam. Pt c/ol: denies any concerns at the time of visit Doula Required: No Accompanied by: Self / Same As Patient Allergies chlorhexidine Allergy (Intermediate, Verified 07/23/24 09:13) Rash Medication List - Last Reconciled 07/23/24 by Viraj Olvera MD amlodipine 5 mg PO DAILY anastrozole 1 mg PO DAILY atenolol 25 mg PO DAILY cholecalciferol (vitamin D3) 25 mcg PO DAILY hydrochlorothiazide 12.5 mg PO DAILY losartan 100 mg PO DAILY simvastatin 20 mg PO DAILY HPI Comments Details: Angelica Slade is a 68-year-old female patient who returns to the office for follow-up breast examination.? 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 Subsequent re-evaluation of pathology at [facility] revealed an area of micro invasion.? Postoperatively she developed redness in the skin related to the skin prep (chlorhexidine) which gradually resolved.? She subsequently underwent radiation therapy (10/23/2020-11/21/2020, [facility], Dr. Ramos) and tolerated this well with no side effects.? She is being followed from medical oncology by Dr. Burk/Carleen and was started on anastrozole (started 12/2020). She tolerates this with mild side effects (hot flashes).? She feels well and denies any ongoing breast symptoms on either side.? She denies any new palpable lumps, skin changes, nipple discharge, or enlarged lymph nodes. ?Screening mammogram performed on 06/14/2024 revealed no mammographic evidence of malignancy (BI-RADS 2). [facility] Medical History Leukopenia Anemia Breast cancer, right Hyperlipidemia Hypertension Surgical History H/O colonoscopy History of lumpectomy of right breast (~08/21/20) Family History Father History of prostate cancer Social History Alcohol intake: current Alcohol intake frequency: holidays/special occasions only Patient Tobacco Use Status: Never used Tobacco Review of Systems Const All systems reviewed & are unremarkable except as noted in HPI and below Denies nipple discharge Skin/Breast Denies breast skin changes, Denies breast pain, Denies breast mass, Denies change in breast shape and Denies nipple discharge Physical Exam Const General: cooperative, healthy appearing, comfortable, no acute distress and well developed Chest Other: Left breast: No skin change, no nipple retraction, no nipple discharge, no palpable mass, no enlarged lymph nodes. Right breast: Well-healed incision in the upper outer quadrant, no new skin changes, no nipple retraction, no nipple discharge, no palpable mass, no enlarged lymph nodes Skin Other: Warm, dry, no rash Neuro Other: Mobility Assessment: 1. 3 meter assessment time (seconds) 5 2. 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 She is now on anastrozole and is also tolerating this well. There is no evidence of recurrence disease. Her most recent mammogram dated 06/12/2022 revealed no suspicious findings (BI-RADS 2) and yearly mammography recommended. Examination today reveals no evidence of recurrence disease and well-healed incision in the right breast. I recommended follow-up evaluation in 6 months sooner p.r.n.. 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
[2024-07-23 09:12] VITALS: BP 138/65; PULSE 88; BMI 38.4
== END 2024-07-23 09:18 | disposition home or self-care (01) ==
PROVIDERS: PCP Internal Medicine; Visit Provider Surgery
DX: D05.11 Intraductal carcinoma in situ of right breast (principal)
CPT/HCPCS: 99213

== ENCOUNTER → 2024-07-23 08:43 | Outpatient (BNVA) | payer MEDICARE, OTHER, SELFPAY | PROVIDERS: PCP Internal Medicine; Visit Provider Surgery | DX: D05.11 Intraductal carcinoma in situ of right breast (principal); Z92.3 Personal history of irradiation; Z79.811 Long term (current) use of aromatase inhibitors | CPT/HCPCS: 99212 ==

== ENCOUNTER → 2024-12-30 10:51 | Outpatient (BNVA) | payer MEDICARE, OTHER, SELFPAY | PROVIDERS: PCP Internal Medicine; Visit Provider Surgery | DX: D05.11 Intraductal carcinoma in situ of right breast (principal) | CPT/HCPCS: 99212 ==

== ENCOUNTER 2025-04-22 09:33 | Outpatient (AMB) | payer MEDICARE, OTHER, SELFPAY ==
[2025-04-22 09:39] VITALS: BP 138/70; PULSE 66; TEMP 36.2; O2SAT 98; BMI 37.5
--- NOTE | 2025-04-22 09:39 | MHC.PC.OV ---
Vital Signs 04/22/25 09:39 Height 5 ft 9 in Weight 254 lb BMI 37.5 BP 138/70 Blood Pressure Location Lt brachial Position Sitting Pulse 66 Pulse Source Pulse Oximeter Temp 97.1 F Temp Source Axillary Pulse Oximetry (%) 98 Oxygen Delivery Method Room Air Intake Visit Reasons: Routine Welder Setter Resistance Machine Required: No Accompanied by: Self / Same As Patient Allergies chlorhexidine Allergy (Intermediate, Verified 04/22/25 09:39) Rash Tobacco use date assessed: 04/22/25 Fall risk assessment: No Falls in past year Last assessed Fall Risk: 04/22/25 Dental Screening Dental Screen Date: 04/22/25 Did you have a dental visit in the last 12 months?: No Did you have a dental problem in the last 6 months where you did not have access to dental care?: No HPI HPI Comments History of Present Illness Details Angelica Slade is a 68-year-old female with past medical history of breast cancer, pancytopenia, hypertension, hyperlipidemia presenting for follow up CV: on amlodipine, lisinopril, losartan atenolol, hctz. 138/70. Denies chest pain, exertional dyspnea. Heme/Onc: History of right breast cancer. Follows with Dr Hansen and [facility]. She sees oncology for ongoing pancytopenia-she has had 2 bone marrow biopsies that were benign. 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 Subsequent re-evaluation of pathology at [facility] a revealed an area of micro invasion.? Postoperatively she developed redness in the skin related to the skin prep (chlorhexidine) which gradually resolved.? She subsequently underwent radiation therapy (10/23/2020-11/21/2020, [facility], Dr. Ramos) and tolerated this well with no side effects.? She is being followed from medical oncology by Dr. Burk/Carleen and was started on anastrozole (started 12/2020). The anastrazole should end in Dec 2025 Colonoscopy 2023 Mammo 05/2024 ROS CONSTITUTIONAL: Denies weight loss, fever and chills. HEENT: Denies changes in vision and hearing. RESPIRATORY: Denies SOB and cough. CV: Denies palpitations and CP GI: Denies abdominal pain, nausea, vomiting and diarrhea. : Denies dysuria and urinary frequency. MSK: Denies new myalgia and joint pain. SKIN: Denies rash and pruritus. NEUROLOGICAL: Denies headache PSYCHIATRIC: Denies recent changes in mood. PHYSICAL EXAM: GENERAL: Alert and oriented x 3. NAD EYES: EOMI. Anicteric. HENT: Moist mucous membranes. No scleral icterus. No cervical lymphadenopathy. LUNGS: Clear to auscultation bilaterally. CARDIOVASCULAR: Regular rate and rhythm. No murmur. No JVD. ABDOMEN: Soft, non-tender +bs EXTREMITIES: No edema. Non-tender. SKIN: No rashes or lesions. Warm. NEUROLOGIC: No focal neurological deficits. CN II-XII grossly intact PSYCHIATRIC: Cooperative. Appropriate mood and affect [facility] Medical History Leukopenia Anemia Breast cancer, right Hyperlipidemia Hypertension Surgical History H/O colonoscopy History of lumpectomy of right breast (~08/21/20) Family History Father History of prostate cancer Mother No problems noted. Father No problems noted. Social History Housing: House Alcohol intake: current Alcohol intake frequency: holidays/special occasions only Patient Tobacco Use Status: Never used Tobacco e-Cigarette/Vaping Use: Never Used service: No Current occupational status: retired Cognitive needs: No Hearing needs: No Vision needs: Yes (reading glasses) Questionnaire PHQ-9 Over the last 2 weeks, how often have you been bothered by any of the following problems? 1. Little interest or pleasure in doing things: not at all 2. Feeling down, depressed, or hopeless: not at all 3. Trouble falling or staying asleep, or sleeping too much: not at all 4. Feeling tired or having little energy: not at all 5. Poor appetite or overeating: not at all 6. Feeling bad about yourself - or that you are a failure or have let yourself or your family down: not at all 7. Trouble concentrating on things, such as reading the newspaper or watching television: not at all 8. Moving or speaking so slowly that other people could have noticed. Or the opposite - being so fidgety or restless that you have been moving around a lot more than usual: not at all 9. Thoughts that you would be better off or of hurting yourself in some way: not at all Total score: 0 Depression Screening Interpretation: Negative Depression Screening Done: Yes 24399 - PHQ-9 Billing: Yes Source: Developed by Drs. Marc Willett, Rosaura Rosales, Jemal Ken and colleagues, with an educational jd from [employer]. Thrive Questionnaire Date Thrive assessed: 04/22/25 I am a: Patient Within the past 12 months, did the food you bought not last and you didn't have the money to get more?: Never true Within the past 12 months, did you worry whether your food would run out before you got money to buy more?: Never true Do you have trouble paying for medicines?: No Do you have trouble getting transportation to medical appointments?: No Do you have trouble paying your heating and electricity bill?: No Do you have trouble taking care of your child, family member or friend?: No Do you have trouble with day-to-day activities such as bathing, preparing meals, shopping, managing finances, etc.?: No Are you currently unemployed and looking for a job?: No Are you interested in more education?: No THRIVE Score: 0 AUDIT C Alcohol Use Questionnaire (AUDIT-C) 1. How often do you have a drink containing alcohol?: Monthly or less 2. How many drinks containing alcohol do you have on a typical day when you are drinking?: 1 or 2 3. How often do you have six or more drinks on one occasion?: Less than monthly Total Score: 2 WILL-7 AMB Questionnaire WILL-7 Date WILL - 7 assessed: 04/22/25 Feeling nervous, anxious, or on edge: 0 = Not at all Not being able to stop or control worryin = Not at all Worrying too much about different things: 0 = Not at all Trouble relaxin = Not at all Being so restless that it is hard to sit still: 0 = Not at all Becoming easily annoyed or irritable: 0 = Not at all Feeling afraid as if something awful might happen: 0 = Not at all Total WILL-7 score (0-4 normal; 5-9 mild; 10-14 moderate; 15-21 severe): 0 Source: Developed by Drs. Marc Willett, Rosaura Rosales, Jemal Ken and colleagues, with an educational jd from [employer]. Physical exam (Primary Care) Vital Signs: Last Vital Signs Temp 97.1 F 04/22/25 09:39 Pulse 66 04/22/25 09:39 BP 138/70 04/22/25 09:39 Pulse Ox 98 04/22/25 09:39 Oxygen Delivery Method Room Air 04/22/25 09:39 BMI result Body Mass Index 37.5 Tobacco/Smoking Status: Tobacco use Status Tobacco use date assessed 04/22/25 04/22/25 09:41 Patient Tobacco Use Status Never used Tobacco 04/22/25 09:41 e-Cigarette/Vaping Use Never Used 04/22/25 09:41 PHQ-9: PHQ-9 Score PHQ-9: Total score 0 04/23/25 10:17 Depression Screening Interpretation: Negative Thrive Assessment: Date of Thrive Assessment Date Thrive assessed 04/22/25 04/22/25 09:41 Coding Level of Care Code New Pt Level 4 (24959) Complex EM visit Add On G2211 Diagnoses Pancytopenia D61.818 Hyperlipidemia, unspecified hyperlipidemia type E78.5 Hyperlipidemia type: unspecified Primary hypertension I10 Hypertension type: primary hypertension 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 Additional Codes PHQ-9 - 39694 - PHQ-9 Billing: Yes ([id number]) Assessment & Plan Assessment & Plan (1) Pancytopenia: Code(s): D61.818 - Other pancytopenia Category: Medical (2) Hyperlipidemia: Code(s): E78.5 - Hyperlipidemia, unspecified Category: Medical Qualifiers: Hyperlipidemia type: unspecified Qualified Code(s): E78.5 - Hyperlipidemia, unspecified (3) Hypertension: Code(s): I10 - Essential (primary) hypertension Category: Medical Qualifiers: Hypertension type: primary hypertension Qualified Code(s): I10 - Essential (primary) hypertension (4) Ductal carcinoma in situ of right breast: Code(s): D05.11 - Intraductal carcinoma in situ of right breast Category: Medical Plan 69 year old female presenting [facility] Past medical, surgical, social history reviewed Pancytopenia-continue heme/onc follow up. Stop hctz. She will monitor BP and return for close folow up. She is coming off anastrazole in Dec another potential trigger Labs ordered. Orders: Orders Hemoglobin A1c 04/22/25 D64.9 - Anemia, unspecified, E78.5 - Hyperlipidemia, unspecified, I10 - Essential (primary) hypertension Comprehensive Met. Panel 04/22/25 D64.9 - Anemia, unspecified, E78.5 - Hyperlipidemia, unspecified, I10 - Essential (primary) hypertension Lipid Panel 04/22/25 D64.9 - Anemia, unspecified, E78.5 - Hyperlipidemia, unspecified, I10 - Essential (primary) hypertension Complete Blood Count Auto Diff 04/22/25 D64.9 - Anemia, unspecified, E78.5 - Hyperlipidemia, unspecified, I10 - Essential (primary) hypertension IRON PROFILE 04/22/25 D64.9 - Anemia, unspecified
--- OUTSIDE RECORDS SUMMARY | 2025-04-22 09:54 | XMS_ITS | Patient Health Record ---
Author Organization [facility] Address [address] [place] [address] Care Team Providers Care Legal Consultant Name Role Phone Clinton Philippe MD Primary Care Provider Marc Curiel Unavailable [phone] Allergies Allergen (clinical drug ingredient) Drug/Non Drug Allergy documented on EMR Reaction Allergy Type Onset Date Status chlorhexidine Chlorhexidine Unknown Drug Allergy Active Reason For Referral No Information Medications Medication SIG (Take, Route, Frequency, Duration) Notes Start Date End Date Status Atenolol 25 MG Oral for 90 Act marzena hydroCHLOROthiazide 12.5 MG TAKE 1 CAPSU LE BY MOUTH EVERY DAY Oral for 90 Active Simvastatin 20 MG Oral for 90 Active Losartan Potassium 100 MG TAKE 1 TABLET BY MOUTH EVERY DAY Oral for 90 Active Vitamin D Active amLODIPine Besylate 5 MG Oral for 90 Active Anastrozole 1 MG Oral for 90 A ctive Social History Tobacco Use: Social History Observation Description Date Details (start date - stop date) Never Smoker NA - NA Tobacco Use/Smoking Question Answer Notes Patient is a nonsmoker Alcohol Screen Question Answer Notes Did you have a drink contain ing alcohol in the past year? Yes How often did you have a dri nk containing alcohol in the past year? Monthly or less (1 point) How many drinks did you have on a typical day when you were drinking in the past year? 1 or 2 drinks (0 point) How often did you have 6 or more drinks on one occasion in the past year? Never (0 point) Points 1 Interpretation Negative Section Notes: Nonsmoker; no sig alcohol Problems Problem Type SNOMED Code ICD Code Onset Dates Problem Status W/U Status Risk Notes Problem Diverticulosis o f large intestine without perforation or abscess without bleeding (K57.30) Active confirmed Problem [id number] Screening for co [place] cancer (Z12.11) Active confirmed Plan Of Treatment Future Test Test Name Order Date COLONOSCOPY 09/11/2023 Insurance Providers Payer Name Payer Address Payer Phone Subscriber Number Group Number Insured Name Patient Relationship to Insured Coverage Start Date Coverage End Date MEDIC[place] OF [place] [address] [place] [id number] DAVIS DYE Self - patient is the insured [facility] [address] [place] [phone] [id number] DAVIS DYE Self - patient is the insured Medical (General) History Medical History History ICD Code Denies NM,DM,CVA,Lung disease,renal dise ase Hypertension Right Breast cancer 07/2020 lumpectomy an d XRT Negative screening colonoscopy in 2007 Hyperlipidemia Leukopenia/Anemia Surgical History Surgery Date(Month/Year) Right breast cancer with lumpectomy and XRT 2019
== END 2025-04-22 10:10 | disposition home or self-care (01) ==
LOC: HO.HMCHD 09:34
PROVIDERS: PCP Internal Medicine; Visit Provider Internal Medicine
DX: D61.818 Other pancytopenia (principal); E78.5 Hyperlipidemia, unspecified; I10 Essential (primary) hypertension; D05.11 Intraductal carcinoma in situ of right breast

== ENCOUNTER → 2025-04-22 09:33 | Outpatient (BNVA) | payer MEDICARE, OTHER, SELFPAY | PROVIDERS: PCP Internal Medicine; Visit Provider Internal Medicine | DX: D61.818 Other pancytopenia (principal); E78.5 Hyperlipidemia, unspecified; I10 Essential (primary) hypertension; D05.11 Intraductal carcinoma in situ of right breast; Z79.811 Long term (current) use of aromatase inhibitors; Z79.899 Other long term (current) drug therapy | CPT/HCPCS: 96127; 99202 ==

== ENCOUNTER 2025-04-26 07:27 | Outpatient (REF) | payer MEDICARE, OTHER, SELFPAY ==
--- OUTSIDE RECORDS SUMMARY | 2025-04-26 07:29 | XMS_ITS | Patient Health Record ---
Author Organization [facility] Address [address] [place] [address] Care Team Providers Care Cone Examiner Name Role Phone Clinton Philippe MD Primary Care Provider Mrac Curiel Unavailable [phone] Allergies Allergen (clinical drug ingredient) Drug/Non Drug [...] Problem Status W/U Status Risk Notes Problem Diverticular disease of colon (270867425) Diverticulosis of large intestine without perforation or abscess without bleeding (K57.30) Active confirmed Problem [id number] Screening for colon cancer (Z12.11) Active confirmed Plan Of Treatment Future Test Test Name Order Date COLONOSCOPY 09/11/2023 Insurance Providers Payer Name Payer Address Payer Phone Subscriber Number Group Number Insured Name Patient Relationship to Insured Coverage Start Date Coverage End Date MEDICARE OF [place] [address] [place] [id number] DAVIS DYE Self - patient is the insured [facility] [address] [place] [phone] [id number] DAVIS DYE Self - patient is the insured Medical (General) History Medical History History ICD Code Denies GA,DM,CVA,Lung disease,renal dise ase Hypertension Right Breast cancer 07/2020 lumpectomy an d XRT Negative screening colonoscopy in 2007 Hyperlipidemia Leukopenia/Anemia Surgical History Surgery Date(Month/Year) Right breast cancer with lumpectomy and XRT 2019
[2025-04-26 10:48] LABS: Eosinophils Percent Auto 0.8 % (0-4); Hematocrit 26.3 % (37.0-47.0); Hemoglobin 8.5 g/dl (12.0-16.0); Imm Gran Abs Auto 0.03 X10*3/uL (0.00-0.03); Imm Gran Pct Auto 2.3 % (0.0-0.4); Lymphocytes Absolute Auto 0.5 X10*3/uL (1.2-4.9); Lymphocytes Percent Auto 39.2 % (20-40); MANUAL DIFF FLAG SCAN; Mean Corpuscular HGB Conc 32.3 g/dl (31.0-35.0); Mean Corpuscular Hemoglobin 31.8 pg (27.0-33.0); Mean Corpuscular Volume 98.5 fL (80.0-98.0); Monocytes Absolute Auto 0.3 X10*3/uL (0.1-1.2); Monocytes Percent Auto 21.5 % (2-11); Neutrophils Absolute Auto 0.5 x10*3/uL (2.0-8.3); Neutrophils Percent Auto 36.2 % (45-73); Red Blood Count 2.67 X10*6/uL (4.20-5.50); Red Cell Distribution Width 16.8 % (11.0-16.0); SCAN SMEAR FLAG 1; White Blood Count 1.3 X10*3/uL (4.8-10.8)
[2025-04-26 10:49] LABS: Platelet Count 61 X10*3/uL (160-400)
[2025-04-26 10:50] LABS: NRBC Pct Auto 1.5 /100WBC (0.0-0.2)
[2025-04-26 10:57] LABS: Estimated Average Glucose 134 mg/dL; Hemoglobin A1c % 6.3 % (<6.0)
[2025-04-26 11:11] LABS: SLIDE REVIEW VERIFIED
[2025-04-26 11:19] LABS: Alanine Aminotransferase 54 U/L (0-31); Albumin Level 4.3 g/dL (3.5-5.0); Alkaline Phosphatase 78 U/L (39-117); Anion Gap 9 (12-20); Aspartate Amino Transferase 36 U/L (5-31); Bilirubin Total 0.5 mg/dL (0.0-1.0); Blood Urea Nitrogen 17 mg/dL (9-16); Calcium 9.6 mg/dL (8.4-10.2); Carbon Dioxide 28 mmol/L (22-29); Chloride 108 mmol/L (96-108); Cholesterol 148 mg/dL (<200); Estimated Glomerular Filt Rate > 60; Glucose Random 116 mg/dL (60-115); HDL Cholesterol 29 mg/dL (>40); Iron 130 mcg/dL (30-160); LDL Cholesterol Calculated 92 mg/dL (<100); Percent Iron Saturation 38 % (15-50); Potassium 3.7 mmol/L (3.3-5.1); Sodium 141 mmol/L (135-145); Total Iron Binding Capacity 343 mcg/dL (228-428); Total Protein 6.5 g/dL (6.5-8.0); Triglycerides 137 mg/dL (<150); Unsaturated Iron Binding 213 ug/dL
== END 2025-04-26 07:28 | disposition home or self-care (01) ==
LOC: HO.10HDL 07:27
PROVIDERS: Visit Provider Internal Medicine
DX: D64.9 Anemia, unspecified (principal); E78.5 Hyperlipidemia, unspecified; I10 Essential (primary) hypertension; Z13.1 Encounter for screening for diabetes mellitus
CPT/HCPCS: 36415; 80053; 80061; 83036; 83540; 85025

== ENCOUNTER 2025-05-13 13:09 | Outpatient (AMB) | payer MEDICARE, OTHER, SELFPAY ==
--- NOTE | 2025-05-13 10:13 | A.OFFPC_ITS ---
Intake Visit Reasons: Telehealth Allergies chlorhexidine Allergy (Intermediate, Verified 04/22/25 09:39) Rash Tobacco use date assessed: 04/22/25 Dental Screening Dental Screen Date: 04/22/25 HPI HPI Comments History of Present Illness Details Angelica Slade is a 68-year-old female with past medical history of breast cancer, pancytopenia, hypertension, hyperlipidemia presenting for follow up Review labs. Last A1C improved from 6.6 to 6.3. Discussed prediabetes CV: on amlodipine, lisinopril, losartan atenolol, stopped hctz. Denies chest pain, exertional dyspnea. Heme/Onc: History of right breast cancer. Follows with Dr Hansen and [facility]. She sees oncology for ongoing pancytopenia-she has had 2 bone marrow biopsies that were benign. Most recent results with fairly marked pancytopenia-decreased ANC. Reviewed with her started in 2020 with onset of anastrazole. 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 Subsequent re-evaluation of pathology at [facility] a revealed an area of micro invasion.? Postoperatively she developed redness in the skin related to the skin prep (chlorhexidine) which gradually resolved.? She subsequently underwent radiation therapy (10/23/2020-11/21/2020, [facility], Dr. Ramos) and tolerated this well with no side effects.? She is being followed from medical oncology by Dr. Burk/Carleen and was started on anastrozole (started 12/2020). The anastrazole should end in Dec 2025 Colonoscopy 2023 Mammo 05/2024 ROS Increased anxiety PHYSICAL EXAM: Telehealth [facility] Medical History Leukopenia Anemia Breast cancer, right Hyperlipidemia Hypertension Surgical History H/O colonoscopy History of lumpectomy of right breast (~08/21/20) Family History Father History of prostate cancer Mother No problems noted. Father No problems noted. Social History Housing: House Alcohol intake: current Alcohol intake frequency: holidays/special occasions only Patient Tobacco Use Status: Never used Tobacco e-Cigarette/Vaping Use: Never Used service: No Current occupational status: retired Cognitive needs: No Hearing needs: No Vision needs: Yes (reading glasses) Questionnaire PHQ-9 Over the last 2 weeks, how often have you been bothered by any of the following problems? 1. Little interest or pleasure in doing things: not at all 2. Feeling down, depressed, or hopeless: not at all 3. Trouble falling or staying asleep, or sleeping too much: not at all 4. Feeling tired or having little energy: not at all 5. Poor appetite or overeating: not at all 6. Feeling bad about yourself - or that you are a failure or have let yourself or your family down: not at all 7. Trouble concentrating on things, such as reading the newspaper or watching television: not at all 8. Moving or speaking so slowly that other people could have noticed. Or the opposite - being so fidgety or restless that you have been moving around a lot more than usual: not at all 9. Thoughts that you would be better off or of hurting yourself in some way: not at all Total score: 0 Source: Developed by Drs. Marc Willett, Rosaura Rosales, Jemal Ken and colleagues, with an educational jd from [employer]. Thrive Questionnaire Date Thrive assessed: 05/13/25 I am a: Patient Within the past 12 months, did the food you bought not last and you didn't have the money to get more?: Never true Within the past 12 months, did you worry whether your food would run out before you got money to buy more?: Never true Do you have trouble paying for medicines?: No Do you have trouble getting transportation to medical appointments?: No Do you have trouble paying your heating and electricity bill?: No Do you have trouble taking care of your child, family member or friend?: No Do you have trouble with day-to-day activities such as bathing, preparing meals, shopping, managing finances, etc.?: No Are you currently unemployed and looking for a job?: No Are you interested in more education?: No THRIVE Score: 0 AUDIT C Alcohol Use Questionnaire (AUDIT-C) 1. How often do you have a drink containing alcohol?: Never 3. How often do you have six or more drinks on one occasion?: Never Total Score: 0 WILL-7 AMB Questionnaire WILL-7 Date WILL - 7 assessed: 05/13/25 Feeling nervous, anxious, or on edge: 0 = Not at all Not being able to stop or control worryin = Not at all Worrying too much about different things: 0 = Not at all Trouble relaxin = Not at all Being so restless that it is hard to sit still: 0 = Not at all Becoming easily annoyed or irritable: 0 = Not at all Feeling afraid as if something awful might happen: 0 = Not at all Total WILL-7 score (0-4 normal; 5-9 mild; 10-14 moderate; 15-21 severe): 0 Source: Developed by Drs. Marc Willett, Rosaura Rosales, Jemal Ken and colleagues, with an educational jd from [employer]. Physical exam (Primary Care) Tobacco/Smoking Status: Tobacco use Status Tobacco use date assessed 04/22/25 05/13/25 10:14 Patient Tobacco Use Status Never used Tobacco 05/13/25 10:14 e-Cigarette/Vaping Use Never Used 05/13/25 10:14 PHQ-9: PHQ-9 Score PHQ-9: Total score 0 05/15/25 12:20 Thrive Assessment: Date of Thrive Assessment Date Thrive assessed 05/13/25 05/13/25 10:14 Telehealth Telehealth Telehealth Platform: [facility] Location of provider rendering services: practice address Location of patient: address on file Patient Identification confirmed using: Name, : Yes Telehealth method: voice only Patient verbally consented to treatment: Yes Patient verbally consented to billing insurance company: Yes Patient informed of any privacy concerns related to visit: Yes Minutes spent on Phone/Video with Pt.: 25 Coding Level of Care Code Tele Est Pt Level 3 (49319) Diagnoses Pancytopenia D61.818 Primary hypertension I10 Hypertension type: primary hypertension Assessment & Plan Assessment & Plan (1) Pancytopenia: Code(s): D61.818 - Other pancytopenia Category: Medical (2) Hypertension: Code(s): I10 - Essential (primary) hypertension Category: Medical Qualifiers: Hypertension type: primary hypertension Qualified Code(s): I10 - Essential (primary) hypertension Plan pancytopenia-likely 2/2 anastrazole. Did stop hctz so she is going to recheck labs to see if there has been any improvement off this She will continue to discuss and follow up with heme.onc Prediabetes-advised to limit sugar/carbohydrates. Orders: Orders Complete Blood Count Auto Diff 05/13/25 D61.818 - Other pancytopenia Pathologist Review - CBC 05/13/25 D61.818 - Other pancytopenia
--- OUTSIDE RECORDS SUMMARY | 2025-05-13 13:11 | XMS_ITS | Patient Health Record ---
Author Organization [facility] Address [address] [place] [address] Care Team Providers Care Lighter Captain Name Role Phone Clinton Philippe MD Primary Care Provider Marc Curiel Unavailable [phone] Allergies Allergen (clinical drug ingredient) Drug/Non Drug [...] abscess without bleeding (K57.30) Active confirmed Problem [id number] Screening for co [place] cancer (Z12.11) Active confirmed Plan Of Treatment Future Test Test Name Order Date COLONOSCOPY 09/11/2023 Insurance Providers Payer Name Payer Address Payer Phone Subscriber Number Group Number Insured Name Patient Relationship to Insured Coverage Start Date Coverage End Date MEDICARE OF [place] [address] [place] [address] [id number] DAVIS DYE Self - patient is the insured [facility] [address] [place] [address] [phone] [id number] DAVIS DYE Self - patient is the insured Medical (General) History Medical History History ICD Code Denies [place],DM,CVA,Lung disease,renal dise ase Hypertension Right Breast cancer 07/2020 lumpectomy an d XRT Negative screening colonoscopy in 2007 Hyperlipidemia Leukopenia/Anemia Surgical History Surgery Date(Month/Year) Right breast cancer with lumpectomy and XRT 2019
== END 2025-05-13 13:47 | disposition home or self-care (01) ==
LOC: HO.HMCHD 13:09
PROVIDERS: PCP Internal Medicine; Visit Provider Internal Medicine
DX: D61.818 Other pancytopenia (principal); I10 Essential (primary) hypertension

== ENCOUNTER → 2025-05-13 13:09 | Outpatient (BNVA) | payer MEDICARE, OTHER, SELFPAY | PROVIDERS: PCP Internal Medicine; Visit Provider Internal Medicine | DX: Z13.89 Encounter for screening for other disorder (principal); D61.818 Other pancytopenia ==

== ENCOUNTER 2025-05-17 07:18 | Outpatient (REF) | payer MEDICARE, OTHER, SELFPAY ==
--- OUTSIDE RECORDS SUMMARY | 2025-05-17 07:20 | XMS_ITS | Patient Health Record ---
Author Organization [facility] Address [address] [place] [address] Care Team Providers Care Time Analysis Clerk Name Role Phone Clinton Philippe MD Primary Care Provider Marc Curiel Unavailable [phone] Allergies Allergen (clinical drug ingredient) Drug/Non Drug [...] abscess without bleeding (K57.30) Active confirmed Problem [id number] Screening for co paulina cancer (Z12.11) Active confirmed Plan Of Treatment Future Test Test Name Order Date COLONOSCOPY 09/11/2023 Insurance Providers Payer Name Payer Address Payer Phone Subscriber Number Group Number Insured Name Patient Relationship to Insured Coverage Start Date Coverage End Date MEDICARE OF [place] [address] [place] [id number] [id number] DAVIS DYE Self - patient is the insured [facility] [address] [place] [address] [phone] [id number] DAVIS DYE Self - patient is the insured Medical (General) History Medical History History ICD Code Denies [place],DM,CVA,Lung disease,renal dise ase Hypertension Right Breast cancer 07/2020 lumpectomy an d XRT Negative screening colonoscopy in 2007 Hyperlipidemia Leukopenia/Anemia Surgical History Surgery Date(Month/Year) Right breast cancer with lumpectomy and XRT 2019
[2025-05-17 09:47] LABS: Eosinophils Percent Auto 2.2 % (0-4); Hematocrit 25.4 % (37.0-47.0); Hemoglobin 8.2 g/dl (12.0-16.0); Imm Gran Abs Auto 0.05 X10*3/uL (0.00-0.03); Imm Gran Pct Auto 3.7 % (0.0-0.4); Lymphocytes Absolute Auto 0.4 X10*3/uL (1.2-4.9); Lymphocytes Percent Auto 29.9 % (20-40); MANUAL DIFF FLAG SCAN; Mean Corpuscular HGB Conc 32.3 g/dl (31.0-35.0); Mean Corpuscular Hemoglobin 31.7 pg (27.0-33.0); Mean Corpuscular Volume 98.1 fL (80.0-98.0); Mean Platelet Volume 10.6 fL (9.4-12.3); Monocytes Absolute Auto 0.3 X10*3/uL (0.1-1.2); Monocytes Percent Auto 22.4 % (2-11); Neutrophils Absolute Auto 0.6 x10*3/uL (2.0-8.3); Neutrophils Percent Auto 41.8 % (45-73); Red Blood Count 2.59 X10*6/uL (4.20-5.50); Red Cell Distribution Width 17.2 % (11.0-16.0); SCAN SMEAR FLAG 1
[2025-05-17 09:50] LABS: Platelet Count 60 X10*3/uL (160-400); White Blood Count 1.3 X10*3/uL (4.8-10.8)
[2025-05-17 10:22] LABS: SLIDE REVIEW VERIFIED
== END 2025-05-17 07:19 | disposition home or self-care (01) ==
LOC: HO.10HDL 07:18
PROVIDERS: Visit Provider Internal Medicine
DX: D61.818 Other pancytopenia (principal)
CPT/HCPCS: 85025

== ENCOUNTER 2025-06-20 07:57 | Outpatient (REF) | payer MEDICARE, OTHER, SELFPAY ==
--- OUTSIDE RECORDS SUMMARY | 2025-06-20 07:59 | XMS_ITS | Patient Health Record ---
Author Organization [facility] Address [address] [place] [address] Care Team Providers Care Intranet Support Name Role Phone Jose Martin (RETIRED) Clinton COLEMAN Primary Care Provide Marc Harvey [phone] Allergies Allergen (clinical drug ingredient) Drug/Non Drug [...] abscess without bleeding (K57.30) Active confirmed Problem [id number] Screening for co paulina cancer (Z12.11) Active confirmed Plan Of Treatment Future Test Test Name Order Date COLONOSCOPY 09/11/2023 Insurance Providers Payer Name Payer Address Payer Phone Subscriber Number Group Number Insured Name Patient Relationship to Insured Coverage Start Date Coverage End Date MEDICARE OF [place] [address] [place] [id number] [phone] [id number] DAVIS DYE Self - patient is the insured [facility] [address] [place] [address] [id number] DAVIS DYE Self - patient is the insured Medical (General) History Medical History History ICD Code Denies [place],DM,CVA,Lung disease,renal dise ase Hypertension Right Breast cancer 07/2020 lumpectomy an d XRT Negative screening colonoscopy in 2007 Hyperlipidemia Leukopenia/Anemia Surgical History Surgery Date(Month/Year) Right breast cancer with lumpectomy and XRT 2019
== END 2025-06-20 07:58 | disposition home or self-care (01) ==
LOC: HO.MAMMO 07:57
PROVIDERS: PCP Internal Medicine; Visit Provider Internal Medicine
DX: Z12.31 Encounter for screening mammogram for malignant neoplasm of breast (principal)
CPT/HCPCS: 77063; 77067

== ENCOUNTER → 2025-06-20 08:15 | Outpatient (BNV) | payer MEDICARE, OTHER, SELFPAY | PROVIDERS: PCP Internal Medicine; Visit Provider Internal Medicine | DX: Z12.31 Encounter for screening mammogram for malignant neoplasm of breast (principal) | CPT/HCPCS: 77063; 77067 ==

== ENCOUNTER 2025-09-23 08:37 | Outpatient (AMB) | payer MEDICARE, OTHER, SELFPAY ==
--- OUTSIDE RECORDS SUMMARY | 2025-09-23 08:55 | XMS_ITS | Patient Health Record ---
Author Organization [facility] Address [address] [place] [address] Care Team Providers Care Steel Checker Name Role Phone Jose Martin (RETIRED) Clinton COLEMAN Primary Care Provide Marc Harvey [phone] Allergies Allergen (clinical drug ingredient) Drug/Non Drug Allergy documented on EMR Reaction Allergy Type Onset Date Status chlorhexidine Chlorhexidine Unknown Drug Allergy Active Reason For Referral No Information Medications Medication SIG (Take, Route, Frequency, Duration) Notes Start Date End Date Status Atenolol 25 MG Oral; Duration: 90 Active hydroCHLOROthiazide 12.5 MG TAKE 1 CAPSU LE BY MOUTH EVERY DAY Oral; Duration: 90 Active Simvastatin 20 MG Oral; Duration: 90 Active Losartan Potassium 100 MG TAKE 1 TABLET BY MOUTH EVERY DAY Oral; Duration: 90 Active Vitamin D Active amLODIPine Besylate 5 MG Oral; Duration: 90 Active Anastrozole 1 MG Oral; Duration: 90 Active Social History Tobacco Use: Social History Observation [...] Risk Notes Problem Diverticular disease of colon ([id number]) Diverticulosis of large intestine without perforation or abscess without bleeding (K57.30) Active confirmed Problem Screening for colon cancer (558247411) Screening for colon cancer (Z12.11) Active confirmed Plan Of Treatment Future Test Test Name Order Date COLONOSCOPY 09/11/2023 Insurance Providers Payer Name Payer Address Payer Phone Subscriber Number Group Number Insured Name Patient Relationship to Insured Coverage Start Date Coverage End Date MEDICARE OF [place] [address] [place] [address] [phone] [id number] DAVIS DYE Self - patient is the insured [facility] [address] [place] [phone] [id number] DAVIS DYE Self - patient is the insured Medical (General) History Medical History History ICD Code Denies [place],DM,CVA,Lung disease,renal dise ase Hypertension Right Breast cancer 07/2020 lumpectomy an d XRT Negative screening colonoscopy in 2007 Hyperlipidemia Leukopenia/Anemia Surgical History Surgery Date(Month/Year) Right breast cancer with lumpectomy and XRT 2019
--- OUTSIDE RECORDS SUMMARY | 2025-09-23 08:55 | XMS_ITS | Clinical Summary ---
Author Organization [facility] Address [address] [place] [address] Phone Care Team Providers Care Systems Engineer Name Role Phone Maryse Moseley MD Primary Care Provider Leyda Funez MD Unavailable Encounters Date Type Department Care Team Description 09/15/2025 9:41 AM EDT - 09/15/2025 11:59 PM EDT Hospital Encounter [facility], [facility] [address] [place] [address] Discharge Disposition: Home or Self Care 09/14/2025 Orders Only [facility] [address] [place] [address] Disha Vyas Pancytopenia (Primary Dx) from Last 3 Months Social History Tobacco Use Types Packs/Day Years Used Date Smoking Tobacco: Never Assessed Education Answer Date Recorded Are you interested in more education? Not on kendra e 09/06/2025 Are you concerned about learning? Not on file 09/06/2025 No 09/06/2025 No 09/06/2025 Digital Access Answer Date Recorded No 09/06/2025 No 09/06/2025 Reliable internet access at home? Not on file 09/06/2025 Device with a working camera? Not on file Comments Unknown Sex and Gender Information Value Date Recorded Sex Assigned at Female 09/06/2025 3:32 PM EDT Legal Sex Female 3:31 PM EDT Gender Identity Female 09/06/2025 3:32 PM EDT Sexual Orientation Straight 09/06/2025 3: 32 PM EDT Plan of Treatment Health Maintenance Due Date Last Done Comments Adult Td,Tdap Booster 1954 LIPID PANEL 1954 DEPRESSION SCREENING 1966 SMOKING Hx and SMOKELESS TOBACCO SCREENING 1967 HEPATITIS C SCREENING 1972 MAMMOGRAM 1994 COLOGUARD 1999 COLONOSCOPY 1999 COLORECTAL CANCER SCREENING 1999 FIT TEST 1999 FOBT 1999 SIGMOIDOSCOPY 1999 VIRTUAL COLONOSCOPY 1999 PNEUMOCOCCAL VACCINES (50+ years) (1 of 1 - PCV) 2004 OSTEOPOROSIS SCREENING INITIAL (ONE-TIME) 2019 INFLUENZA VACCINE (#1) 2025 , 09/06/2023, 08/29/2021, Additional history exists COVID-19 VACCINE ( - season) 2025 09/09/2024, 09/17/2023, 08/23/2022, Additional history exists ZOSTER VACCINES (2 of 2) 08/26/2025 07/01/2025 RSV VACCINE (1 - 1-dose 75+ series) 2029 HEPATITIS A VACCINES Aged Out No long er eligible based on patient's age to complete this topic HIB VACCINES Aged Out No longer eligi ble based on patient's age to complete this topic MENINGOCOCCAL VACCINES (ACWY) Aged Out No longer eligible based on patient's age to complete this topic MENINGOCOCCAL VACCINES (B) Aged Out N o longer eligible based on patient's age to complete this topic Medical Devices Not on file Insurance [facility] MEDICARE SUPPLEMENT MEDICARE PART A & B [facility] MEDICARE SUPPLEMENT MEDICARE PART A & B [facility] MEDICARE SUPPLEMENT MEDICARE PART A & B [facility] MEDICARE SUPPLEMENT MEDICARE PART A & B [facility] MEDICARE SUPPLEMENT MEDICARE PART A & B [facility] MEDICARE SUPPLEMENT MEDICARE PART A & B Care Teams Systems Engineer Relationship Specialty Start Date End Date Maryse Moseley MD [address] [place] [id number] PCP - General Internal Medicine 09/06/25 Leyda Funez MD [facility] [place] [address] [email or web address] Referring Physician Internal Medicine 09/06/25 Additional Source Comments The information contained in this document represents components of the legal health record. It is not the complete legal health record.[facility]
--- NOTE | 2025-09-23 08:56 | A.OFFPC_ITS ---
Vital Signs 09/23/25 08:57 09/23/25 09:13 Height 5 ft 9 in Weight 249 lb 8 oz BMI 36.8 BP 148/84 H 136/84 Blood Pressure Location Rt brachial Rt brachial Position Sitting Sitting Respiration 14 Pulse 74 Pulse Source Pulse Oximeter Temp 98.6 F Temp Source Oral Intake Visit Reasons: HARRI[facility] from [address] [place] [address] dr Echavarria Note: Transfer of care Envelope Adjuster Required: No Allergies chlorhexidine Allergy (Intermediate, Verified 09/23/25 08:58) Rash Tobacco use date assessed: 04/22/25 Fall risk assessment: No Falls in past year Last assessed Fall Risk: 09/23/25 Dental Screening Dental Screen Date: 04/22/25 HPI HPI Comments History of Present Illness Details Angelica Slade is a 69-year-old female with past medical history of breast cancer, pancytopenia, hypertension, hyperlipidemia presenting for follow up Prediabetes 6.6 to 6.3. She has lost ~10 pounds CV: on amlodipine, lisinopril, losartan, atenolol, stopped hctz but no improvement in pancytopenia. She can restart prn or daily. 136/84. Denies chest pain, exertional dyspnea. Heme/Onc: History of right breast cancer. Follows with Dr Hansen and [facility]. She sees oncology for ongoing pancytopenia-she has had 2 bone marrow biopsies that were benign. Most recent results with fairly marked pancytopenia-decreased ANC. Reviewed with her started in 2020 with onset of anastrazole. 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 Subsequent re-evaluation of pathology at [facility] a revealed an area of micro invasion.? Postoperatively she developed redness in the skin related to the skin prep (chlorhexidine) which gradually resolved.? She subsequently underwent radiation therapy (10/23/2020-11/21/2020, [facility], Dr. Ramos) and tolerated this well with no side effects.? She is being followed from medical oncology by Dr. Burk/Carleen and was started on anastrozole (started 12/2020). The anastrazole should end in Dec 2025 Colonoscopy 2023 Mammo 05/2025 ROS CONSTITUTIONAL: Denies weight loss, fever and chills. HEENT: Denies changes in vision and hearing. RESPIRATORY: Denies SOB and cough. CV: Denies palpitations and CP GI: Denies abdominal pain, nausea, vomiting and diarrhea. : Denies dysuria and urinary frequency. MSK: Denies new myalgia and joint pain. SKIN: Skin growth left hand NEUROLOGICAL: Denies headache PSYCHIATRIC: Denies recent changes in mood. PHYSICAL EXAM: GENERAL: Alert and oriented x 3. NAD EYES: EOMI. Anicteric. HENT: Moist mucous membranes. No scleral icterus. No cervical lymphadenopathy. LUNGS: Clear to auscultation bilaterally. CARDIOVASCULAR: Regular rate and rhythm. No murmur. No JVD. ABDOMEN: Soft, non-tender +bs EXTREMITIES: No edema. Non-tender. SKIN: SKin growth left hand NEUROLOGIC: No focal neurological deficits. CN II-XII grossly intact PSYCHIATRIC: Cooperative. Appropriate mood and affect [facility] Medical History Leukopenia Anemia Breast cancer, right Hyperlipidemia Hypertension Surgical History H/O colonoscopy History of lumpectomy of right breast (~08/21/20) Family History Father History of prostate cancer Mother No problems noted. Father No problems noted. Social History Housing: House Alcohol intake: current Alcohol intake frequency: holidays/special occasions only Patient Tobacco Use Status: Never used Tobacco e-Cigarette/Vaping Use: Never Used service: No Current occupational status: retired Cognitive needs: No Hearing needs: No Vision needs: Yes (reading glasses) Questionnaire PHQ-9 Over the last 2 weeks, how often have you been bothered by any of the following problems? 1. Little interest or pleasure in doing things: not at all 2. Feeling down, depressed, or hopeless: not at all 3. Trouble falling or staying asleep, or sleeping too much: several days 4. Feeling tired or having little energy: several days 5. Poor appetite or overeating: not at all 6. Feeling bad about yourself - or that you are a failure or have let yourself or your family down: not at all 7. Trouble concentrating on things, such as reading the newspaper or watching television: not at all 8. Moving or speaking so slowly that other people could have noticed. Or the opposite - being so fidgety or restless that you have been moving around a lot more than usual: not at all 9. Thoughts that you would be better off or of hurting yourself in some way: not at all Total score: 2 Depression Screening Interpretation: Negative Depression Screening Done: Yes 18462 - PHQ-9 Billing: Yes Source: Developed by Drs. Marc Willett, Rosaura Rosales, Jemal Ken and colleagues, with an educational jd from [employer] Thrive Questionnaire Date Thrive assessed: 09/16/25 I am a: Patient What is your living situation today?: I have a steady place to live Within the past 12 months, did the food you bought not last and you didn't have the money to get more?: Never true Within the past 12 months, did you worry whether your food would run out before you got money to buy more?: Never true Do you have trouble paying for medicines?: No Do you have trouble getting transportation to medical appointments?: No Do you have trouble paying your heating and electricity bill?: No Do you have trouble taking care of your child, family member or friend?: No Do you have trouble with day-to-day activities such as bathing, preparing meals, shopping, managing finances, etc.?: No Are you currently unemployed and looking for a job?: No Are you interested in more education?: No Please select the resources that you would like help with: None Currently or been in a relationship where the following occur: No concerns reported THRIVE Score: 0 AUDIT C Alcohol Use Questionnaire (AUDIT-C) 1. How often do you have a drink containing alcohol?: Monthly or less 2. How many drinks containing alcohol do you have on a typical day when you are drinking?: 1 or 2 3. How often do you have six or more drinks on one occasion?: Never Total Score: 1 WILL-7 AMB Questionnaire WILL-7 Date WILL - 7 assessed: 05/13/25 Feeling nervous, anxious, or on edge: 0 = Not at all Not being able to stop or control worryin = Not at all Worrying too much about different things: 0 = Not at all Trouble relaxin = Not at all Being so restless that it is hard to sit still: 0 = Not at all Becoming easily annoyed or irritable: 0 = Not at all Feeling afraid as if something awful might happen: 0 = Not at all Total WILL-7 score (0-4 normal; 5-9 mild; 10-14 moderate; 15-21 severe): 0 Source: Developed by Drs. Marc Willett, Rosaura Rosales, Jemal Ken and colleagues, with an educational jd from [employer] Physical exam (Primary Care) Vital Signs: Last Vital Signs Temp 98.6 F 09/23/25 08:57 Pulse 74 09/23/25 08:57 Resp 14 09/23/25 08:57 BP 136/84 09/23/25 09:13 BMI result Body Mass Index 36.8 Tobacco/Smoking Status: Tobacco use Status Tobacco use date assessed 04/22/25 09/23/25 09:04 Patient Tobacco Use Status Never used Tobacco 09/23/25 09:04 e-Cigarette/Vaping Use Never Used 09/23/25 09:04 PHQ-9: PHQ-9 Score PHQ-9: Total score 2 09/23/25 09:15 Depression Screening Interpretation: Negative Thrive Assessment: Date of Thrive Assessment Date Thrive assessed 09/16/25 09/23/25 09:04 Currently or been in a relationship where the following occur: No concerns reported Coding Level of Care Code Est Pt Level 4 (32916) Complex EM visit Add On G2211 Diagnoses Prediabetes R73.03 Primary hypertension I10 Hypertension type: primary hypertension Pancytopenia D61.818 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 Additional Codes PHQ-9 - 52635 - PHQ-9 Billing: Yes ([id number]) Assessment & Plan Assessment & Plan (1) Prediabetes: Code(s): R73.03 - Prediabetes Category: Medical (2) Hypertension: Code(s): I10 - Essential (primary) hypertension Category: Medical Qualifiers: Hypertension type: primary hypertension Qualified Code(s): I10 - Essential (primary) hypertension (3) Pancytopenia: Code(s): D61.818 - Other pancytopenia Category: Medical (4) 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 She can restart HCTZ daily or as needed. She has had some ankle swelling intermittently Skin lesion-trial 5FU. Advised this will appear irritated as it heals. She decl ine derm at present Breast cancer-continue anastrazole. Hopefully when this is completed in December her pancytopenia will resolve Orders: Orders Vitamin B12 and Folate Today I10 - Essential (primary) hypertension, R53.83 - Other fatigue, R73.03 - Prediabetes UA and rflx microscopic Today R53.83 - Other fatigue Lipid Panel Today E78.5 - Hyperlipidemia, unspecified Comprehensive Met. Panel Today I10 - Essential (primary) hypertension, R53.83 - Other fatigue, R73.03 - Prediabetes Hemoglobin A1c Today I10 - Essential (primary) hypertension, R53.83 - Other fatigue, R73.03 - Prediabetes Urine Culture Today R53.83 - Other fatigue Medications: New fluorouracil 5% 1 appl topical BID 40 grams 0RF 2 weeks
[2025-09-23 08:57] VITALS: BP 148/84; PULSE 74; RESP 14; TEMP 37; BMI 36.8
[2025-09-23 09:13] VITALS: BP 136/84
== END 2025-09-23 09:32 | disposition home or self-care (01) ==
LOC: HO.HMCFM 08:39
PROVIDERS: PCP Internal Medicine; Visit Provider Internal Medicine
DX: R73.03 Prediabetes (principal); I10 Essential (primary) hypertension; D61.818 Other pancytopenia; D05.11 Intraductal carcinoma in situ of right breast

== ENCOUNTER 2025-09-23 08:37 | Outpatient (REF) | payer MEDICARE, OTHER, SELFPAY ==
[2025-09-23 12:10] LABS: Alanine Aminotransferase 58 U/L (0-31); Albumin Level 4.6 g/dL (3.5-5.0); Alkaline Phosphatase 90 U/L (39-117); Anion Gap 11 (12-20); Aspartate Amino Transferase 43 U/L (5-31); Blood Urea Nitrogen 15 mg/dL (9-16); Calcium 9.7 mg/dL (8.4-10.2); Carbon Dioxide 27 mmol/L (22-29); Chloride 108 mmol/L (96-108); Cholesterol 148 mg/dL (<200); Estimated Glomerular Filt Rate > 60; HDL Cholesterol 28 mg/dL (>40); Potassium 3.9 mmol/L (3.3-5.1); Sodium 142 mmol/L (135-145); Total Protein 6.7 g/dL (6.5-8.0); Triglycerides 120 mg/dL (<150)
[2025-09-23 12:43] LABS: Folate 8.5 ng/mL (> or = 4.0); Vitamin B12 282 pg/mL (200-900)
== END 2025-09-23 08:38 | disposition home or self-care (01) ==
LOC: HO.WFDLDS 08:37
PROVIDERS: PCP Internal Medicine; Visit Provider Internal Medicine
DX: R73.03 Prediabetes (principal); E78.5 Hyperlipidemia, unspecified; I10 Essential (primary) hypertension; D61.818 Other pancytopenia; D05.11 Intraductal carcinoma in situ of right breast; R53.83 Other fatigue
CPT/HCPCS: 36415; 80053; 80061; 82607; 82746; 83036; 87086; 96127; 99212